=== PATIENT | male | born 1975 | race Caucasian/White ===

== ENCOUNTER 2021-04-28 13:52 | Emergency (ER) | payer SELFPAY ==
[2021-04-28 13:55] VITALS: BP 119/78; PULSE 98; RESP 16; TEMP 36.6; O2SAT 100
--- NOTE | 2021-04-28 14:24 | ED.MALEGU ---
HPI - Male Genitourinary General Chief complaint: Urogenital-Male Stated complaint: Swollen penis Source: patient Mode of arrival: ambulatory History of Present Illness HPI Narrative: patient presents with some pain inflammation with redness in the shaft of his penis currently there is no discharge the patient is not concerned about any STDs with no high-risk sexual contacts there is some redness and tenderness with palpation, there is no fever chills no penile discharge does have a right inguinal node tenderness and swelling, the [place] water park [place], Complaint: other ( Pain with redness and tenderness the penis with some some inflammation) Onset (ago): day(s) Duration: constant Location: penis Radiation: right inguinal region Severity: moderate Severity scale (1-10): 6 Quality: aching Relieving factors: none Exacerbating factors: none Related Data Allergies Allergy/AdvReac Type Severity Reaction Status Date / Time No Known Allergies Allergy Verified 04/28/21 14:09 Review of Systems Review of Systems: All systems reviewed & are unremarkable except as noted in HPI and below PMFSH Past Medical History Medical History Patient denies medical problems Exam Const: General: no acute distress and alert HENMT: Head: normal to inspection Eyes: Conjunctivae: conjunctivae normal Pupils: Equal, round and reactive pupils present Neck: Neck: normal visual inspection, no lymphadenopathy and no meningeal signs Chest: Chest palpation & inspection: normal inspection of the chest Resp: Effort & Inspection: normal respiratory effort Cardio: Rate: regular rate Rhythm: regular rhythm GI: GI Palp: Yes Soft to palpation : Penis: Yes circumcised Other: swelling of the shaft of the penis with erythema and tenderness Urinary Catheter: Urinary Catheter: patent and draining and urine clear Back/Spine/Pelvis: Back: no CVA tenderness Skin: General skin exam: normal color Rashes: no rashes Neuro: General: patient oriented x3 Extrem: General: normal to inspection and no pedal edema Psych: Mental Status: mental status grossly normal Affect: normal affect Course Course Emergency Course: patient received Depo-Medrol and IM ceftriaxone and will print a work release for the patient along with antibiotic sent to his pharmacy. Critical Care Time Critical Care Time Critical Care Time: No Discharge Plan Discharge Clinical Impression: Cellulitis Qualifiers: Site of cellulitis: other site Qualified Code(s): L03.818 - Cellulitis of other sites Patient Disposition: Home, Self-Care Condition: Stable Instructions: Antibiotic Form, Cellulitis (ED) Additional Instructions: take medicine as prescribed, can take Aleve or Motrin as needed for pain and follow-up with primary care physician if symptoms persist or worsen. Prescriptions: New sulfamethoxazole-trimethoprim [Bactrim DS] 800-160 mg tablet 1 tablet PO Q12H Qty: 20 RF: 0 Follow-up/Referrals: Yayo Armenta MD [Primary Care Provider] - Stand Alone Forms: Work/School Release IP Time of Disposition: 14:30
[2021-04-28] MEDS: methylPREDNISolone ACETATE 40 MG/ML VIAL 80 MG IM (14:25)
[2021-04-28] MEDS: cefTRIAXone 1 GM VIAL IM (14:25)
[2021-04-28 14:40] VITALS: RESP 15; O2SAT 98
== END 2021-04-28 14:58 | disposition home or self-care (01) ==
PROVIDERS: Emergency Provider Emergency Medicine; PCP Internal Medicine
DX: L03.818 Cellulitis of other sites (principal)
CPT/HCPCS: 96372; 99283; J0696; J1030

== ENCOUNTER 2023-12-14 11:25 | Emergency (ER) | payer SELFPAY ==
[2023-12-14] VITALS (22 sets, daily range): BP systolic 139–184; BP diastolic 92–114; PULSE 67–78; RESP 20; TEMP 36.7; O2SAT 92–98
--- NOTE | 2023-12-14 11:27 | ECG_ITS ---
Measurements Intervals [place] Rate: 75 P: 73 MD: 188 QRS: 96 QRSD: 110 T: 37 QT: 393 QTc: 441 Interpretive Statements SINUS RHYTHM BORDERLINE RIGHT AXIS DEVIATION [QRS AXIS > 90] NONSPECIFIC sT DEPRESSION [0.05+ mV ST DEPRESSION] BORDERLINE ECG NO PREVIOUS ECG AVAILABLE FOR COMPARISON Electronically Signed On 12-14-2023 14:03:28 [employer] by Glen Castellanos M.D.
[2023-12-14 11:39] LABS: Basophils Absolute Auto 0.06 K/mm3 (0.00-0.10); Basophils Percent Auto 0.6 % (0.0-1.0); Eosinophils Absolute Auto 0.55 K/mm3 (0.02-0.50); Eosinophils Percent Auto 5.3 % (1.0-6.0); Hematocrit 46.9 % (40.0-54.0); Hemoglobin 15.3 g/dL (14.0-18.0); Immature Granulocyte Absolute 0.06 K/mm3 (0.00-0.00); Immature Granulocyte Percent A 0.6 % (0.0-0.0); Lymphocytes Absolute Auto 1.95 K/mm3 (1.10-4.50); Lymphocytes Percent Auto 18.6 % (18.0-42.0); Mean Corpuscular HGB Conc 32.6 g/dL (32.0-36.0); Mean Corpuscular Hemoglobin 30.5 pg (27.0-31.0); Mean Corpuscular Volume 93.4 fL (78.0-102.0); Mean Platelet Volume 9.4 fl (8.7-11.0); Monocytes Absolute Auto 0.89 K/mm3 (0.10-0.90); Monocytes Percent Auto 8.5 % (2.0-11.0); Neutrophils Percent Auto 66.4 % (50.0-70.0); Platelet Count Result 401 K/mm3 (150-420); Red Blood Count 5.02 M/mm3 (4.70-6.10); Red Cell Distribution Width 12.2 % (11.6-14.4); White Blood Count 10.5 K/mm3 (4.8-10.8)
--- NOTE | 2023-12-14 11:42 | ED.GENADULT ---
HPI - General Adult General Chief complaint: Headache Stated complaint: High BP Time Seen by Provider: 12/14/23 11:27 Source: patient Mode of arrival: ambulatory Limitations: no limitations History of Present Illness HPI narrative: Patient is a 48-year-old male with a mild headache and significant elevated blood pressures at home over 200 systolic. He recently had a change in his blood pressure medication from the doctor to go up on the medication. It appears patient is on atenolol 50 mg daily. He was recently on Atenolol 25 mg and adjusted to 50 mg last visit per patient. Onset (ago): hour(s) Location: head Radiation: non-radiation Severity: mild Severity scale (1-10): 1 Quality: sharp Pain Consistency: intermittent Relieving factors: none Exacerbating factors: none Associated symptoms: denies other symptoms Treatments prior to arrival: none Related Data Home Medications Medication Instructions Recorded Confirmed atenolol 50 mg BYMOUTH DAILY hypertension 12/14/23 12/14/23 Allergies Allergy/AdvReac Type Severity Reaction Status Date / Time citalopram AdvReac Unknown Verified 12/14/23 12:02 Review of Systems Review of Systems: All systems reviewed & are unremarkable except as noted in HPI and below Constitutional: Constitutional: Reports no additional constitutional complaints Eyes: Eyes: Reports no additional eye complaints ENT: Reports system reviewed and no additional complaints, except as documented Cardiovascular: Cardiovascular: Reports no additional cardiovascular complaints Respiratory: Respiratory: Reports no additional respiratory complaints Gastrointestinal: Gastrointestinal: Reports no additional gastrointestinal complaints Genitourinary: Genitourinary: Reports no additional male genitourinary complaints Musculoskeletal: Musculoskeletal: Reports no additional musculoskeletal complaints Integumentary/Breasts: Skin/Breast: Reports system reviewed and no additional complaints, except as docu Neurologic: Reports system reviewed and no additional complaints, except as documented Psychiatric: Psychiatric: Reports no additional psychiatric complaints Endocrine: Endocrine: Reports no additional endocrine complaints Hematologic/Lymphatic: Hematologic/Lymphatic: Reports no additional hematologic/lymphatic complaints Allergic/Immunologic: Allergic/Immunologic: Reports no additional allergic/immunologic complaints PMFSH Past Medical History Medical History Patient denies medical problems Exam Const: General: healthy appearing Nutritional Appearance: well nourished Orientation/consciousness: patient oriented x3 HENMT: Head: normal to inspection Ears: external ears normal Face/Nose/Sinus: Normal external nose present Eyes: Conjunctivae: conjunctivae normal Pupils: Equal, round and reactive pupils present EOM: EOMs intact bilaterally Neck: Neck: normal visual inspection Chest: Chest palpation & inspection: normal inspection of the chest Resp: Effort & Inspection: normal respiratory effort and not labored Auscultation: clear to auscultation bilaterally and no crackles Cardio: Rate: regular rate Rhythm: regular rhythm Heart sounds: no murmurs GI: Inspection: non-distended GI Palp: Yes Soft to palpation and No Tenderness to palpation present (GI) Auscultation: normal bowel sounds : General: Yes bladder normal to palpation Back/Spine/Pelvis: Back: no CVA tenderness Skin: General skin exam: normal color Rashes: no rashes Wounds: no wounds Neuro: General: patient oriented x3 Cranial nerves: Yes Nystagmus not present Speech: normal speech Extrem: General: normal to inspection Psych: Mental Status: mental status grossly normal Affect: normal affect Attitude: cooperative Course Vital Signs Vital signs: Vital Signs Temperature 36.7 C 12/14/23 11:26 Pulse Rate 72 12/14/23 11:26 Respiratory Rate
[2023-12-14 11:56] LABS: Alanine Aminotransferase 30 U/L (16-63); Albumin Level 3.6 g/dL (3.4-5.0); Alkaline Phosphatase 111 U/L (46-116); Anion Gap 9 mmol/L (8-16); Aspartate Amino Transferase 15 U/L (15-37); Bilirubin,Total 0.2 mg/dL (0.00-1.00); Blood Urea Nitrogen 11 mg/dL (7-18); Calcium 8.1 mg/dL (8.5-10.1); Carbon Dioxide 25 mmol/L (21-32); Chloride 104 mmol/L (98-108); Estimated Glomerular Filt Rate > 60; Glucose 99 mg/dL (70-99); Osmolality Calculated 285 mOsm/kg (285-295); Sodium 138 mmol/L (136-145); Total Protein 7.5 g/dL (6.4-8.2); Troponin I 31.5 ng/L (0.00-60.4)
[2023-12-14] MEDS: cloNIDine HCL 0.1 MG TABLET PO (12:09)
--- NOTE | 2023-12-14 13:15 | ECG_ITS ---
Measurements Intervals [place] Rate: 60 P: 73 MI: 186 QRS: 94 QRSD: 103 T: 12 QT: 423 QTc: 423 Interpretive Statements SINUS RHYTHM BORDERLINE RIGHT AXIS DEVIATION [QRS AXIS > 90] NONSPECIFIC ST SEGMENT ABNORMALITY BORDERLINE ECG COMPARED TO ECG 12/14/2023 11:51:00 NO SIGNIFICANT CHANGES Electronically Signed On 12-14-2023 14:05:41 RESIDENT MANAGER by Glen Castellanos M.D.
[2023-12-14 13:59] LABS: Troponin I 36.8 ng/L (0.00-60.4)
== END 2023-12-14 14:21 | disposition home or self-care (01) ==
PROVIDERS: Emergency Provider Emergency Medicine; PCP Internal Medicine
DX: I10 Essential (primary) hypertension (principal)
CPT/HCPCS: 36415; 80053; 84484; 85025; 93005; 99284; A9270

== ENCOUNTER 2024-10-03 09:10 | Outpatient (CLI) | payer BC, SELFPAY ==
--- NOTE | ~2024-10-03 | CT_ITS ---
Non-contrast CT scan of the Abdomen Clinical indication: Periumbilical pain Technique: 2.5 mm axial scans were obtained through the abdomen without intravenous or oral contrast . Dose reduction technique was used on this scan by utilizing automated exposure control and iterativ e reconstruction technique. The dose-length product (DLP) was 880.24 mGy-cm. Findings: Images through the lung bases reveal no abnormalities. Bilateral nonobstructing renal stones are present, largest in the right kidney measuring 8 mm. No hyd ronephrosis. The liver, spleen, pancreas, gallbladder, and adrenals appear normal. There is no aortic aneurysm. Visualized bowel loops are unremarkable. No ascites. No umbilical hernia or ventral hernia seen. Impression: No hernia seen. Bilateral nonobstructing nephrolithiasis, as above. Reviewed, dictated and finalized at [facility] M. IGURATION MANAGEMENT SPECIALIST Impression: No hernia seen. Bilateral nonobstructing nephrolithiasis, as above.
== END 2024-10-03 09:11 | disposition home or self-care (01) ==
LOC: CHSIMG 09:11
PROVIDERS: PCP Internal Medicine; Visit Provider Surgery
DX: M62.08 Separation of muscle (nontraumatic), other site (principal); R10.33 Periumbilical pain; N20.0 Calculus of kidney
CPT/HCPCS: 74150